=== PATIENT | male | born 1980 | race Caucasian/White ===

== ENCOUNTER 2025-02-18 23:07 | Emergency (ER) | payer OTHER, SELFPAY ==
[2025-02-18 23:09] VITALS: BP 143/107
[2025-02-18 23:15] LABS: Glucose - Point of Care 125 mg/dl (70-99)
[2025-02-18 23:21] VITALS: BMI 21.4
[2025-02-18 23:30] VITALS: BP 140/101
[2025-02-18 23:36] LABS: Hematocrit 39.4 % (39.0-52.0); Hemoglobin 13.8 g/dL (13.0-18.0); Mean Corp Hgb Conc. 35.0 g/dL (33.0-37.0); Mean Corpuscular Volume 81.4 fL (80.0-94.0); Nucleated Red Blood Cells % 0 % (-); Platelet Count 169 10^3/uL (130-400); Red Cell Dist. Width 13.2 % (11.5-14.5)
[2025-02-18 23:45] VITALS: BP 127/100
[2025-02-18 23:46] LABS: INR 0.98; PT 13.3 Sec (11.4-14.6)
[2025-02-18 23:47] LABS: APTT 27.7 Sec (23.4-35.0)
[2025-02-18 23:50] LABS: ALT (SGPT) 28 U/L (0-50); AST (SGOT) 31 U/L (17-59); Acetaminophen < 10 ug/ml (10-30); Albumin 4.1 g/dl (3.5-5.0); Alkaline Phosphatase 73 U/L (38-126); B.E. 4.2 mmol/L; Blood Urea Nitrogen 21 mg/dl (9-20); Calcium 9.1 mg/dl (8.4-10.2); Carbon Dioxide 28 mmol/L (22-30); Chloride 107 mmol/L (98-107); Estimated Creatinine Clearance 88 ml/min; Glucose 132 mg/dl (70-99); HCO3 29.2 mmol/L (21-28); O2 Saturation % 99.5 % (94-98); PCO2 44 mmHg (35-48); PO2 120 mmHg (83-108); Potassium 4.2 mmol/L (3.5-5.1); Salicylate < 1.0 mg/dl (2.0-20.0); Sodium 138 mmol/L (135-145); Total Protein 6.9 g/dl (6.3-8.2); eGFR > 60.00
[2025-02-19] VITALS (15 sets, daily range): BP systolic 101–138; BP diastolic 78–100
[2025-02-19 00:27] LABS: Urine Character Clear (Clear)
[2025-02-19] MEDS: NSS 1000 IV (00:54)
[2025-02-19 01:01] LABS: Urine White Cell 0-2 /HPF (0-5)
--- NOTE | 2025-02-19 01:59 | ED.GENMED ---
History of Present Illness
General
Chief Complaint: Overdose Unintentional
Source: family and ambulance crew
Time Seen by Provider: 02/18/25 23:14
History of Present Illness
History of Present Illness:
A 45-year-old male was brought to the emergency department in an unresponsive state after EMS was called for a possible cardiac arrest. The patient had initially received one dose of naloxone (Narcan) at home by family members, which they reported
was not administered correctly. Upon EMS arrival, another dose was administered, which improved his respiratory rate. Upon arrival in the ER, the patient was semi-responsive but maintained oxygen saturation above 95% throughout the stay. A CT scan
of the head and cervical spine was negative for trauma. Lab work appeared reasonable, with an arterial blood gas (ABG) being within normal limits, although the patient was slightly dehydrated and received fluids. His glucose level was 132 mg/dL.
Urine drug screen tested positive for buprenorphine, fentanyl, amphetamines, and methamphetamine. The patient was somnolent but stable. He was admitted for methamphetamine and fentanyl overdose. The patients son provided additional context, noting
his fathers history of prolonged addiction, which has reportedly improved recently.
Note:
CARE-UPDATE
02/18/25 - 23:14
Patient presented with an unknown narcotic overdose. Initial administration of Narcan was reportedly ineffective according to family. Patient demonstrates a history of heroin use but was not definitive on recent substances. Titration of Narcan to
patients respiratory response is planned. Current oxygen saturation remains at 100%. If saturation decreases, additional Narcan will be administered. Patient is being monitored closely for changes in respiratory status, and orders have been placed
to ensure immediate availability of Narcan as needed.
CARE-UPDATE
02/18/25 - 23:31
The conversation highlights a patients ongoing struggle with substance abuse, notably with new-age drugs. The patient has experienced significant personal and familial stress, compounded by a challenging living situation and a lack of direct
communication with supportive relatives. The patients family attempted to administer Narcan earlier in the day without success, indicating a severe level of overdose that may require further medical intervention. It is also noted that the patient
has a younger child who may need additional support given the current situation. The family has been actively involved but is struggling to manage the situation effectively and may require external assistance or counseling.
EKG
My independent EKG interpretation is:
- Rhythm: Normal sinus rhythm
- Heart Rate: 64 beats per minute
- PA Interval: Normal
- QRS Duration: Normal
- QT Interval: Normal
- [place]: Normal
- Abnormalities: None observed
Disposition:
SUMMARY OF ENCOUNTER
A 45-year-old male was brought to the emergency department in an unresponsive state after EMS was called for a possible cardiac arrest. The patient had initially received one dose of naloxone (Narcan) at home by family members, which they reported
was not administered correctly. Upon EMS arrival, another dose was administered, which improved his respiratory rate. Upon arrival in the ER, the patient was semi-responsive but maintained oxygen saturation above 95% throughout the stay. A CT scan
of the head and cervical spine was negative for trauma. Lab work appeared reasonable, with an arterial blood gas (ABG) being within normal limits, although the patient was slightly dehydrated and received fluids. His glucose level was 132 mg/dL.
Urine drug screen tested positive for buprenorphine, fentanyl, amphetamines, and methamphetamine. The patient was somnolent but stable. He was admitted for methamphetamine and fentanyl overdose. The patients son provided additional context, noting
his fathers history of prolonged addiction, which has reportedly improved recently.
DISPOSITION
Admit
ASSESSMENT
Methamphetamine and fentanyl overdose with somnolence in the context of substance use disorder.
EMERGENCY TREATMENTS ADMINISTERED
Naloxone (Narcan) was administered by EMS with effective improvement in respiratory rate. The patient also received intravenous fluids for dehydration.
INDEPENDENT REVIEW OF LABS AND INTERPRETATION OF TESTS
My independent review of CT scan of the head and cervical spine is negative for any trauma.
My independent review of urine drug screen is positive for buprenorphine, fentanyl, amphetamines, and methamphetamine.
My independent review of glucose level is 132 mg/dL, indicative of mild hyperglycemia.
Arterial Blood Gas (ABG) within normal limits despite some dehydration.
PATIENT EDUCATION AND COUNSELING
Discussion with the patients son regarding the critical nature of the overdose and the importance of ongoing treatment and support for substance use disorder.
MEDICATION RECONCILIATION
Administration of naloxone (Narcan) by EMS.
Intravenous fluids administered for rehydration.
MEDICAL DECISION MAKING
- Number and Complexity of Problems Addressed: Chronic conditions affecting care include the patient�s prolonged substance use disorder. Differential Diagnosis: Narcotic overdose, poly-substance ingestion.
- Data:
Category 1: My independent interpretation of the CT scan of the head and cervical spine was negative.
Category 3: Discussion of management and ongoing evaluation with emergency room staff regarding overdose protocol and patient monitoring.
- Risk: Admission was necessary due to the high risk of complications related to methamphetamine and fentanyl overdose. The patients condition necessitated ongoing observation and potential intervention.
DIAGNOSIS
Methamphetamine overdose (ICD-10: T43.621A), Fentanyl overdose (ICD-10: T40.4X1A), Substance use disorder (ICD-10: F19.10).
Review of Systems
Review of Systems
Unable to obtain full review of systems at this time due to: due to acuity
Other source history: family (Son is present at the bedside)
All Other Systems: Not applicable
Phy Exam
General Physical Exam
General Presentation: severe distress
General age: appears older than age
General Skin: cool and diaphoretic
General Habitus: normal
General Mental: anxious
General Hydration: dry mucous membranes
Cardiovascular Exam
Cardiovascular Exam: regular rate/rhythm
Pulmonary Exam
Pulmonary Exam: lungs clear, no respiratory distress and no cough
Neurological Exam
Neurological Exam: appears intoxicated, confused and slurred speech
Bruno Coma Scale
Eye Opening: To Voice
Verbal Response: Confused
Motor Response: Obeys Commands
GCS Total Score: 13
Musculoskeletal Exam
Musculoskeletal Exam: full ROM and no edema
Skin Exam
Skin Exam: normal color and other (Multiple tattoos)
Psychiatric Exam
Psychiatric Exam: labile
Course
Orders/Labs/Results
Orders:
Orders
02/18/25 23:14
Bedside Glucose- Treatment ONCE
Cardiac Monitoring- Treatment ONCE
Urinalysis Reflex To Culture Urgent
Date Specimen was Collected: 02/19/25
Time Specimen was Collected: 00:12
Urine Drug Abuse Screen Urgent
Date Specimen was Collected: 02/19/25
Time Specimen was Collected: 00:12
Naloxone [Narcan] 0.4 mg IV ONCE PRN PRN
O2 Therapy [RESP] Stat
Non-Rebreather Mask: Yes
Titrate/Wean O2 to maintain O2 sat greater than (%): 95
02/18/25 23:15
Electrocardiogram (*1) Stat
Reason for Study: Other
Other Reason for Exam: overdose
EKG- Treatment ONCE
02/18/25 23:27
Acetaminophen Urgent
Alcohol Urgent
Arterial Blood Gas Urgent
%Oxygen/Room Air: nrb
Complete Blood Count/With Diff Urgent
Comprehensive Metabolic Panel Urgent
PTT Urgent
Prothrombin Time Urgent
Salicylate Urgent
02/19/25 00:00
Straight cath- Treatment ONCE
Straight Cath As Directed
Frequency: One time now
02/19/25 00:01
Restraints - Non Violent As Directed
Justification-Patient:: 2-Protective Intervention
Restraint Type-: Soft Limb-4 point/4 rails
Apply From (date): 02/18/25
Apply from (time): 23:30
Remove (date): 02/19/25
Remove (time): 23:59
02/19/25 00:14
Fentanyl, Urine Urgent
Urine Microscopic Reflex Cult Urgent
02/19/25 00:[address]
CT Cervical Spine W/o Iv Contr Urgent
Reason For Exam: overdose with possible head trauma
CT Head W/o Iv Contrast Urgent
Reason For Exam: overdose with possible head trauma
02/19/25 00:50
0.9% Sodium Chloride 1000 ml [Nss] 1,000 ml IV BOLUS
02/19/25 01:10
Naloxone [Narcan] 2 mg .ROUTE .STK-MED ONE
02/19/25 05:19
Ambulate Patient-Treatment ONCE
02/19/25 06:44
Chest [CR Chest - 2 Views ] Urgent
Comment:
Reason For Exam: post overdose moist cough
Abnormal Lab Results
02/18/25 02/18/25 02/19/25
23:13 23:27 00:14
pO2 120 H mmHg
(83-108)
HCO3 29.2 H mmol/L
(21-28)
ABG O2 Sat (Measured) 99.5 H %
(94-98)
BUN 21 H mg/dl
(9-20)
Glucose 132 H mg/dl
(70-99)
Urine RBC 11-15 A /HPF
(0-2)
Urine Albumin (Reflex) 1+ A
(Neg - Trace)
Salicylates < 1.0 L mg/dl
(2.0-20.0)
Ur Buprenorphine Positive H
(Negative)
Urine Fentanyl Screen Positive H
(Negative)
Acetaminophen < 10 L ug/ml
(10-30)
Ur Amphetamines Screen Positive H
(Negative)
U Methamphetamines Scrn Positive H
(Negative)
POC Glucose 125 H mg/dl
(70-99)
02/18/25 23:27
02/18/25 23:27
Vital Signs
Initial and Last Documented VS:
Initial Vital Signs
Pulse Resp BP Pulse Ox
91 22 143/107 95
02/18/25 23:09 02/18/25 23:09 02/18/25 23:09 02/18/25 23:09
Last Documented Vital Signs
Temp Pulse Resp BP Pulse Ox
98.1 F 56 15 114/85 96
02/18/25 23:18 02/19/25 06:30 02/19/25 06:30 02/19/25 06:00 02/19/25 06:30
*Pulse Oximetry
SaO2: 100
Nasal Cannula flow liters per minute: 2
Oxygen Mode of Delivery: Room air
Patient hypoxic: yes (On room air patient was hypoxic. On nasal cannula patient did not show any signs of hypoxia)
*Critical Care Note
Total Time (30-74mins, 75-104mins- exclusive of procedures): 50 (Critical care statement: A total of 50 minutes of critical care time was provided for this patient. This time is separate from time utilized to perform the aforementioned documented
procedures. Aggregate critical care time includes only time during which I was engaged in work directl)
Update Note
Update Note:
NAME: SAUL GARCIA
DATE OF EXAM: 02/19/2025
Patient No: [id number]
Physician: YENI^Brandon
Date of : 1980
Past Medical History (entered by Technologist):
Reason For Exam (entered by Technologist): overdose with possible head trauma
Other Notes (entered by Technologist): per ems pt unresponsive at home, SO tried to give narcan,'didn't release.'.. unresponsive for ems with agonal resp, was given 2 mg of narcan intranasal and 2 mg iv on route, on arrival became alert, agitated,
screaming. was directable. #18 jelco to R jugular, #18 jelco to LAC on route. pt admits to fentanyl
no prior
Additional Information (per [facility] Radiologist):
CT HEAD
CT C-SPINE
IMPRESSION:
HEAD
No acute intracranial hemorrhage, herniation or hydrocephalus.
Soft tissue density within the bilateral external auditory canal, presumably cerumen
C-SPINE
No acute fracture or traumatic malalignment. No prevertebral soft tissue swelling.
Case finalized at 109am ET
5:59 AM: Patient wishes to be seen by Lolly johnston.
ED Attending Note
-
Portions of this chart may have been created with voice recognition software.� Occasional wrong word or��sound alike� substitutions may have occurred due to the inherent limitations of voice recognition software.
Discharge Plan
Departure
Admit to: IMU
Presentation/result/management discussed w/ accepting MD/DO: Hospitalist
Discharge Problem:
Accidental fentanyl overdose, Overdose of methamphetamine
Prescriptions:
No Action
Unobtainable
0
Referrals:
Fariha Dietz DO [Family Provider]
Interventions
Interventions:
*Risk Screen - Suicide Last Done: 02/18/25 23:10
*General Assessment Last Done: 02/19/25 06:49
*Neglect/Abuse Screening Last Done: 02/19/25 06:49
*ED- Fall Risk Assessment Last Done: 02/19/25 06:49
*ED COVID-19 Vaccine History Last Done: 02/19/25 06:49
ED- Cardiac Assessment Last Done: 02/18/25 23:10
ED- Neurological Assessment Last Done: 02/18/25 23:10
ED-Psychological Assessment Last Done: 02/18/25 23:10
ED- Pulmonary Assessment Last Done: 02/18/25 23:10
Discharge Date and Time
Print Language: KHMER
--- NOTE | 2025-02-19 09:00 | EDRN ---
BCAAMBER came to speak with the patient about treatment. Patient became belligerently agitated due his belongings not being here. Attempting to get in touch with his family who were here all night. Unable to get through past VM. Patient attempting to
leave without removing IVs so this RN was able to get patient to agree to let me remove the IVs and equipment. Patient was provided a box lunch but unable to eat as he does not have his dental devices. CLYDE provided resources for the patient on
paper.
Patient's sister arrived to the room and they then began arguing about him getting treatment. Patient unwilling to sit and discuss with sister preferring to walk out of the room looking to exit. Patient's sister is upset and refusing to take the
patient home. Janelle Barbosa RN manager report is out in the waiting room speaking with the patient.
== END 2025-02-19 09:00 | disposition home or self-care (01) ==
LOC: EMR 23:07
PROVIDERS: EMERGENCY PHYSICIAN Student in an Organized Health Care Education/Training Program
DX: T40.411A Poisoning by fentanyl or fentanyl analogs, accidental (unintentional), initial encounter (principal); T43.651A Poisoning by methamphetamines accidental (unintentional), initial encounter; R40.0 Somnolence; E86.0 Dehydration
CPT/HCPCS: 96360; 99284; 70450; 71046; 72125; 80053; 80143; 80179; 80306; 80307; 81003; 81015; 82077; 82805; 82962; 85025; 85610; 85730; 93005